=== PATIENT | male | born 1995 | race African-American/Black ===

== ENCOUNTER 2019-03-21 08:50 | Day surgery (SDC) | payer MEDICAID ==
[2019-03-21 09:42] LABS: GLUCOSE, URINE (UA) NEGATIVE (NEGATIVE); KETONES,URINE (UA) 40 mg/dL (NEGATIVE); LEUKOCYTE ESTERASE, URINE NEGATIVE (NEGATIVE); NITRITE,URINE NEGATIVE (NEGATIVE); OCCULT BLOOD,URINE SMALL (NEGATIVE); PROTEIN,URINE TRACE mg/dL (NEGATIVE); UROBILINOGEN,URINE 0.2 (NORMAL) E.U./dL (NORMAL)
[2019-03-21 09:43] LABS: CLARITY,URINE CLEAR (CLEAR)
[2019-03-21] MEDS ORDERED: ONDANSETRON 4 MG/2 ML VIAL IVP STA (09:46)
[2019-03-21 09:47] LABS: BILIRUBIN,URINE NEGATIVE (NEGATIVE); ICTOTEST,URINE NEGATIVE
[2019-03-21 09:53] LABS: BASOPHILS % (AUTO) 0.4 %; EOSINOPHILS # (AUTO) 0.1 10^3/uL (0.0-0.7); EOSINOPHILS % (AUTO) 0.9 %; HGB - HEMOGLOBIN 13.8 g/dL (14.0-18.0); LYMPHOCYTES # (AUTO) 2.1 10^3/uL (1.5-3.5); LYMPHOCYTES % (AUTO) 20.5 %; MEAN CORPUSCULAR HEMOGLOBIN 26.8 pg (27.0-31.0); MEAN CORPUSCULAR HGB CONC 30.5 g/dL (32.0-36.0); MEAN CORPUSCULAR VOLUME 87.9 fL (80.0-94.0); MEAN PLATELET VOLUME 11.2 fL (7.4-11.4); MONOCYTES # (AUTO) 0.7 10^3/uL (0.0-1.0); MONOCYTES % (AUTO) 6.6 %; NEUTROPHILS # (AUTO) 7.1 10^3/uL (1.5-6.6); NEUTROPHILS % (AUTO) 71.2 %; PLT - PLATELET COUNT 198 10^3/uL (130-450); RED BLOOD COUNT 5.14 10^6/uL (4.70-6.10)
[2019-03-21 10:01] LABS: BACTERIA,URINE Rare /HPF (None Seen); MUCUS,URINE Few Strands; RBC,URINE 0-5 /HPF (0-5); SQUAMOUS EPITHELIAL CELL,UR NONE SEEN (<= Few)
[2019-03-21] MEDS ORDERED: MORPHINE 2 MG/ML CARPUJECT IVP STA (10:01)
--- NOTE | 2019-03-21 10:04 | ED Physician Documentation ---
History of Present Illness - Stated complaint Stated Complaint: R SIDE ABD PX - Chief complaint Chief Complaint: Abd Pain - Treatment prior to arrival Treatment prior to arrival: This is a otherwise healthy 23-year-old male presents with right lower quadrant pain for the last 2 to 3 days. He began having some aching in his right lower quadrant, this is been associated with poor appetite, one episode of vomiting, and continued nausea. He denies any dysuria or hematuria. No testicular pain. He has never had any surgeries on his abdomen. No fever. Pain currently 09/22. Review of Systems Constitutional: denies: Fever Nose: denies: Rhinorrhea / runny nose Throat: denies: Dental pain / toothache Cardiac: denies: Chest pain / pressure GI: reports: Abdominal Pain, Nausea : denies: Dysuria Skin: denies: Rash PD PAST MEDICAL HISTORY - Past Medical History GI: None - Past Surgical History Past Surgical History: No - Present Medications Home Medications: Ambulatory Orders Medication Instructions Recorded Confirmed Ciprofloxacin 500 mg PO BID #5 tab 03/21/19 Promethazine [Phenergan] 25 - 50 mg PO Q6H PRN #10 tab 03/21/19 oxyCODONE/ACET 5/325 [Percocet 5 1 each PO Q4-6H PRN #14 tablet 03/21/19 mg/325 mg] - Allergies Allergies/Adverse Reactions: Allergies Allergy/AdvReac Type Severity Reaction Status Date / Time No Known Drug Allergies Allergy Verified 03/21/19 09:11 - Living Situation Living Arrangement: reports: At home PD ED PE NORMAL - Vitals Vital signs reviewed: Yes - General General: Alert and oriented X 3 - Cardiac Cardiac: RRR - Respiratory Respiratory: No respiratory distress - Abdomen Abdomen: Other (Focal right lower quadrant tenderness. No guarding. No upper quadrant tenderness.) - Extremities Extremities: No deformity - Neuro Neuro: Alert and oriented X 3 Results - Vitals Vitals: Vital Signs - 24 hr 03/21/19 03/21/19 03/21/19 09:09 10:16 11:22 Temperature 36.9 C 37.2 C 37.2 C Heart Rate 82 71 88 Respiratory 14 17 12 Rate Blood Pressure 146/65 H 157/77 H 132/77 H O2 Saturation 98 99 100 03/21/19 03/21/19 03/21/19 12:48 12:55 13:00 Temperature 36.9 C 37.0 C Heart Rate 65 59 L 60 Respiratory 16 12 15 Rate Blood Pressure 160/79 H 141/81 H 141/72 H O2 Saturation 100 99 100 03/21/19 03/21/19 03/21/19 13:05 13:10 13:15 Temperature 36.8 C Heart Rate 61 57 L 60 Respiratory 17 18 19 Rate Blood Pressure 139/89 H 142/74 H 142/76 H O2 Saturation 100 100 98 03/21/19 03/21/19 03/21/19 13:20 13:25 13:32 Temperature 37.0 C 37.4 C Heart Rate 69 64 63 Respiratory 20 17 14 Rate Blood Pressure 153/80 H 143/82 H 136/78 H O2 Saturation 98 98 99 03/21/19 03/21/19 03/21/19 13:37 13:43 13:47 Temperature 37.4 C 37.4 C 37.4 C Heart Rate 74 60 58 L Respiratory 14 14 14 Rate Blood Pressure 135/70 H 137/73 H 126/77 O2 Saturation 96 97 97 03/21/19 03/21/19 03/21/19 14:02 14:17 14:32 Temperature 37.3 C 37.2 C 37.2 C Heart Rate 58 L 62 73 Respiratory 14 14 14 Rate Blood Pressure 137/78 H 127/76 130/79 O2 Saturation 97 98 100 03/21/19 14:47 Temperature 37.3 C Heart Rate 65 Respiratory 14 Rate Blood Pressure 130/79 O2 Saturation 100 Oxygen O2 Source Room air - Labs Labs: Laboratory Tests 03/21/19 03/21/19 03/21/19 09:11 09:21 09:32 WBC 10.0 RBC 5.14 Hgb 13.8 L Hct 45.2 MCV 87.9 MCH 26.8 L MCHC 30.5 L RDW 13.0 Plt Count 198 MPV 11.2 Neut # (Auto) 7.1 H Lymph # (Auto) 2.1 [place] # (Auto) 0.7 Eos # (Auto) 0.1 Baso # (Auto) 0.0 Absolute Nucleated RBC 0.00 Nucleated RBC % 0.0 Sodium 138 Potassium 3.6 Chloride 101 Carbon Dioxide 27 Anion Gap 10.0 BUN 9 Creatinine 0.9 Estimated GFR (MDRD) 127 Glucose 103 H Calcium 9.4 Total Bilirubin 1.4 H AST 19 ALT 24 Alkaline Phosphatase 74 Total Protein 8.2 Albumin 4.5 Globulin 3.7 Albumin/Globulin Ratio 1.2 Lipase 20 L Urine Color DARK YELLOW Urine Clarity CLEAR Urine pH 6.0 Ur Specific [place] >=1.030 H Urine Protein TRACE Urine Glucose (UA) NEGATIVE Urine Ketones 40 H Urine Occult Blood SMALL H Urine Nitrite NEGATIVE Urine Bilirubin NEGATIVE Urine Urobilinogen 0.2 (NORMAL) Ur Leukocyte Esterase NEGATIVE Urine RBC 0-5 Urine WBC 0-3 Ur Squamous Epith Cells NONE SEEN Urine Bacteria Rare Urine Mucus Few Strands Ur Microscopic Review INDICATED Urine Culture Comments NOT INDICATED - Rads (name of study) CT Abd/pelvis Radiology: Other (Acute uncomplicated appy) PD MEDICAL DECISION MAKING - ED course Complexity details: considered differential (Appendicitis, UTI, enteritis, abscess) ED course: Pt presents with symptoms most concerning for appendicitis, he was given zofran and morphine and a fluid bolus. CT does indeed show acute uncomplicated appendicitis. He was given Zosyn, I explained the diagnosis and the plan for surgery, and Dr. Mcclain took him to the OR for appendectomy. He was non-toxic and hemodynamically stable. Departure - Departure Disposition: ED Transfer to [facility] Clinical Impression: Appendicitis Qualifiers: Appendicitis type: acute appendicitis Acute appendicitis type: with localized peritonitis Appendicitis gangrene presence: without gangrene Appendicitis perforation presence: without perforation Appendicitis abscess presence: without abscess Qualified Code(s): K35.30 - Acute appendicitis with localized peritonitis, without perforation or gangrene Condition: Good Discharge Date/Time: 03/21/19 11:59
[2019-03-21 10:12] LABS: ALBUMIN 4.5 g/dL (3.2-5.5); ALBUMIN/GLOBULIN RATIO 1.2 (1.0-2.2); BILIRUBIN,TOTAL 1.4 mg/dL (0.2-1.0); CALCIUM 9.4 mg/dL (8.5-10.3); CREATININE 0.9 mg/dL (0.6-1.2); TOTAL PROTEIN 8.2 g/dL (6.7-8.2)
[2019-03-21] MEDS ORDERED: IOVERSOL 320 100 ML VIAL IVP ONE ×2 (10:19→11:34)
[2019-03-21] MEDS ORDERED: PIPERACILLIN/TAZOBACTAM 3.375 GM in SODIUM CHLORIDE 0.9% MINIBAG 100 ML IV STA (10:57)
--- NOTE | 2019-03-21 10:57 | CT Report ---
Reason: RLQ pain, nausea/vomiting Procedure Date: 03/21/2019 Accession Number: [id number] / [id number] Procedure: CT - Abdomen/Pelvis W CPT Code: Final Report FULL RESULT: EXAM: CT ABDOMEN AND PELVIS EXAM DATE: 03/21/2019 10:27 AM. CLINICAL HISTORY: Right lower quadrant pain, nausea/vomiting. COMPARISONS: None. TECHNIQUE: Routine helical CT imaging was performed through the abdomen and pelvis. IV contrast: OPTI 320 100ML. Enteric contrast: No. Reconstructions: Coronal and sagittal. In accordance with CT protocol optimization, one or more of the following dose reduction techniques were utilized for this exam: automated exposure control, adjustment of mA and/or KV based on patient size, or use of iterative reconstructive technique. FINDINGS: Lung Bases: Unremarkable. Liver: Normal. No masses. Gallbladder/Bile Ducts: Unremarkable. Spleen: Normal. Pancreas: Normal. Adrenal Glands: Normal. Kidneys: Normal. No masses or hydronephrosis. Peritoneal Cavity/Bowel: There are focal inflammatory changes surrounding the appendix, which measures up to 1.1 cm in caliber and demonstrates an appendicolith near the base. No bowel obstruction, overt free fluid or fluid collection. A prominent lobular nodularity in the infrarenal precaval region as seen on image 44 series 3 and image 26 series 5 is felt to represent atypical morphology of reactive physiologic lymph nodes given nearby pathology and expected appearance of other nearby lymph nodes, see coronal image 25 series 5. Pelvic Organs: Visualized bladder and remaining organs within the pelvis are within normal limits, for appendicitis see above. Vasculature: No aneurysms or other significant abnormality. Bones: No significant abnormality. Other: None. IMPRESSION: Acute uncomplicated appendicitis. [facility] The call report notification system was initiated by Dr. Aston Rene at 10:53 AM on 03/21/2019. The above call report findings were discussed with Erick Jennings by Dr. Aston Rene at 10:56 AM on 03/21/2019.
--- NOTE | 2019-03-21 11:14 | ANESTHESIA ---
Pre-Anesthesia VS, & Labs - Diagnosis Acute appendicitis - Procedure Lap. Appy Vital Signs: Temp Pulse Resp BP Pulse Ox 37.2 C 71 17 157/77 H 99 03/21/19 10:16 03/21/19 10:16 03/21/19 10:16 03/21/19 10:16 03/21/19 10:16 Height 5 ft 9 in Weight (kg) 122.47 kg Body Mass Index 39.9 - NPO >8 hours - Lab Results Current Lab Results: Laboratory Tests 03/21/19 09:32: Sodium 138, Potassium 3.6, Chloride 101, Carbon Dioxide 27, Anion Gap 10.0, BUN 9, Creatinine 0.9, Estimated GFR (MDRD) 127, Glucose 103 H, Calcium 9.4, Total Bilirubin 1.4 H, AST 19, ALT 24, Alkaline Phosphatase 74, Total Protein 8.2, Albumin 4.5, Globulin 3.7, Albumin/Globulin Ratio 1.2, Lipase 20 L 03/21/19 09:11: WBC 10.0, RBC 5.14, Hgb 13.8 L, Hct 45.2, MCV 87.9, MCH 26.8 L, MCHC 30.5 L, RDW 13.0, Plt Count 198, MPV 11.2, Neut # (Auto) 7.1 H, Lymph # (Auto) 2.1, [place] # (Auto) 0.7, Eos # (Auto) 0.1, Baso # (Auto) 0.0, Absolute Nucleated RBC 0.00, Nucleated RBC % 0.0 Lab results reviewed: Yes Fish Bones: 03/21/19 09:11 03/21/19 09:32 Home Medications and Allergies Active Medications Piperacillin Sod/Tazobactam (Sod 3.375 gm/ Sodium Chloride) 100 mls @ 200 mls/hr IV ONCE STA Stop: 03/21/19 11:26 Allergies/Adverse Reactions: Allergies Allergy/AdvReac Type Severity Reaction Status Date / Time No Known Drug Allergies Allergy Verified 03/21/19 09:11 Anes History & Medical History - Anesthetic History Family history of Anesthesia Complications: Denies Family history of Malignant Hyperthermia: Denies - Medical History Cardiovascular: reports: None Pulmonary: reports: None Gastrointestinal: reports: None Urinary: reports: None Neuro: reports: None Musculoskeletal: reports: None Endocrine/Autoimmune: reports: None Blood Disorders: reports: None Skin: reports: None Smoking Status: Current every day smoker (Vapes daily.) Psychosocial: reports: No issues indicated Exam General: Alert, Oriented x3, Cooperative, No acute distress Dental: WNL Mouth Openin Fingerbreadth Neck Mobility: Normal Mallampati classification: II Thyromental Distance: greater than 6 cm Respiratory: Lungs clear, Normal breath sounds, No respiratory distress, No accessory muscle use Cardiovascular: Regular rate, Normal S1, Normal S2, No murmurs Mental/Cognitive Status: Alert/Oriented X3, Normal for patient Plan Anesthesia Type: General Consent for Procedure(s) Verified and Reviewed: Yes Code Status: Attempt Resuscitation ASA classification: 2-Mild systemic disease Is this case an emergency?: Yes
[2019-03-21] MEDS ORDERED: MIDAZOLAM 2 MG/2 ML VIAL IVP ONE (11:29)
[2019-03-21] MEDS ORDERED: PROPOFOL 200 MG/20 ML VIAL IVP ONE (11:29)
[2019-03-21] MEDS ORDERED: NEOSTIGMINE 1 MG/1 ML 10 ML MDV IVP ONE (11:29)
[2019-03-21] MEDS ORDERED: KETOROLAC 30 MG/ML VIAL IVP ONE (11:29)
[2019-03-21] MEDS ORDERED: HYDROmorphone 1 MG/ML SYRINGE IM ONE (11:29)
[2019-03-21] MEDS ORDERED: fentaNYL 100 MCG/2 ML VIAL IVP ONE (11:29)
[2019-03-21] MEDS ORDERED: ROCURONIUM 50 MG/5 ML VIAL IVP ONE (11:29)
[2019-03-21] MEDS ORDERED: GLYCOPYRROLATE 1 MG/5 ML VIAL IVP ONE (11:29)
[2019-03-21] MEDS ORDERED: LACTATED RINGERS 1,000 ML IV ONE ×2 (11:36→12:48)
--- NOTE | 2019-03-21 11:41 | HISTORY & PHYSICAL EXAMINATION ---
HPI - Admitted From Admitted from: ED - History Obtained From Records Reviewed: RN notes reviewed History obtained from: Patient Exam limitations: No limitations - History of Present Illness Severity at the worst: reports: Severe Pain Quality: reports: Dull, Aching, Cramping, Throbbing Context-Pain started w/: reports: Rest Timing: reports: Gradual onset Duration: reports: Unknown (3) Improved with: reports: Nothing Worsened by: reports: Exertion, Inspiration, Eating, Movement, Palpation Associated symptoms: reports: Nausea, General Weakness HPI Comment/Other: This is a otherwise healthy 23-year-old male presents with right lower quadrant pain for the last 2 to 3 days. He began having some aching in his right lower quadrant, this is been associated with poor appetite, one episode of vomiting, and continued nausea. He denies any dysuria or hematuria. No testicular pain. He has never had any surgeries on his abdomen. No fever. PMH/PSH - Past Medical History Cardiovascular: positive: None Respiratory: positive: None Neuro: positive: None Endocrine/Autoimmune: positive: None GI: positive: None : positive: None Musculoskeletal: positive: None Derm: positive: None Social & Family Hx - Social History Does the pt smoke?: Yes Smoking Status: Current every day smoker (Vapes daily.) Does the pt drink ETOH?: No Does the pt have substance abuse?: No Meds/Allgy - Allergies Allergies/Adverse Reactions: Allergies Allergy/AdvReac Type Severity Reaction Status Date / Time No Known Drug Allergies Allergy Verified 03/21/19 09:11 Review of Systems - Constitutional Constitutional: reports: Fatigue, Malaise, Poor appetite. denies: Fever, Chills - Eyes Eyes: denies: Irritation, Blurred vision - Ears, Nose & Throat Ears, Nose & Throat: denies: Tinnitus, Vertigo - Cardiovascular Cariovascular: denies: Irregular heart rate, Palpitations, Chest pain, Lightheadedness - Respiratory Respiratory: denies: Cough, Wheezing - Gastrointestinal Gastrointestinal: reports: Abdominal pain, Nausea. denies: Abdominal distention, Constipation, Diarrhea, Vomiting - Genitourinary Genitourinary: denies: Dysuria, Frequency, Urgency - Musculoskeletal Musculoskeletal: denies: Muscle pain, Back pain - Integumentary Integumentary: denies: Rash, Pruritis, Lesions - Neurological Neurological: denies: General weakness, Focal weakness - Psychiatric Psychiatric: denies: Depression, Anxiety - Endocrine Endocrine: denies: Polyuria, Polydypsia - Hematologic/Lymphatic Hematologic/Lymphatic: denies: Anemia, Bruising, Blood clots - All Other Systems All Other Systems: reports: Reviewed and negative Exam - Vital Signs Reviewed Vital Signs: Yes Vital Signs: Vital Signs x48h Temp Pulse Resp BP Pulse Ox 03/21/19 11:22 37.2 C 88 12 132/77 H 100 03/21/19 10:16 37.2 C 71 17 157/77 H 99 03/21/19 09:09 36.9 C 82 14 146/65 H 98 - Physical Exam General Appearance: positive: No acute distress Eyes Bilateral: positive: Normal inspection, PERRL, EOMI ENT: positive: ENT inspection nml, Pharynx nml, No signs of dehydration Neck: positive: Nml inspection, Thyroid nml, No JVD, Trachea midline Respiratory: positive: Chest non-tender, No respiratory distress, Breath sounds nml. negative: Wheezes Cardiovascular: positive: Regular rate & rhythm, No murmur, No gallop Peripheral Pulses: positive: 1+ Abdomen: positive: No organomegaly, Tenderness, Rebound Back: positive: Nml inspection. negative: CVA tenderness (R), CVA tenderness (L) Skin: positive: Color nml, No rash, Warm Extremities: positive: Non-tender, Full ROM, Nml appearance Neurologic/Psychiatric: positive: Oriented x3, CN's nml (2-12) Results - Lab Results Lab results reviewed: Yes Fish Bones: 03/21/19 09:11 03/21/19 09:32 Other Lab Results: Lab Results x24hrs 03/21/19 03/21/19 03/21/19 Range/Units 09:32 09:21 09:11 WBC 10.0 (4.8-10.8) x10^3/uL RBC 5.14 (4.70-6.10) 10^6/uL Hgb 13.8 L (14.0-18.0) g/dL Hct 45.2 (42.0-52.0) % MCV 87.9 (80.0-94.0) fL MCH 26.8 L (27.0-31.0) pg MCHC 30.5 L (32.0-36.0) g/dL RDW 13.0 (12.0-15.0) % Plt Count 198 (130-450) 10^3/uL MPV 11.2 (7.4-11.4) fL Neut # (Auto) 7.1 H (1.5-6.6) 10^3/uL Lymph # (Auto) 2.1 (1.5-3.5) 10^3/uL [place] # (Auto) 0.7 (0.0-1.0) 10^3/uL Eos # (Auto) 0.1 (0.0-0.7) 10^3/uL Baso # (Auto) 0.0 (0.0-0.1) 10^3/uL Absolute Nucleated RBC 0.00 x10^3/uL Nucleated RBC % 0.0 /100WBC Sodium 138 (135-145) mmol/L Potassium 3.6 (3.5-5.0) mmol/L Chloride 101 (101-111) mmol/L Carbon Dioxide 27 (21-32) mmol/L Anion Gap 10.0 (6-13) BUN 9 (6-20) mg/dL Creatinine 0.9 (0.6-1.2) mg/dL Estimated GFR (MDRD) 127 (>89) Glucose 103 H (70-100) mg/dL Calcium 9.4 (8.5-10.3) mg/dL Total Bilirubin 1.4 H (0.2-1.0) mg/dL AST 19 (10-42) IU/L ALT 24 (10-60) IU/L Alkaline Phosphatase 74 (42-121) IU/L Total Protein 8.2 (6.7-8.2) g/dL Albumin 4.5 (3.2-5.5) g/dL Globulin 3.7 (2.1-4.2) g/dL Albumin/Globulin Ratio 1.2 (1.0-2.2) Lipase 20 L (22-51) U/L Urine Color DARK YELLOW Urine Clarity CLEAR (CLEAR) Urine pH 6.0 (5.0-7.5) PH Ur Specific [place] >=1.030 H (1.002-1.030) Urine Protein TRACE (NEGATIVE) mg/dL Urine Glucose (UA) NEGATIVE (NEGATIVE) mg/dL Urine Ketones 40 H (NEGATIVE) mg/dL Urine Occult Blood SMALL H (NEGATIVE) Urine Nitrite NEGATIVE (NEGATIVE) Urine Bilirubin NEGATIVE (NEGATIVE) Urine Urobilinogen 0.2 (NORMAL) (NORMAL) E.U./dL Ur Leukocyte Esterase NEGATIVE (NEGATIVE) Urine RBC 0-5 (0-5) /HPF Urine WBC 0-3 (0-3) /HPF Ur Squamous Epith Cells NONE SEEN (<= Few) Urine Bacteria Rare (None Seen) /HPF Urine Mucus Few Strands Ur Microscopic Review INDICATED Urine Culture Comments NOT INDICATED - Diagnostic Imaging Results Diagnostic Imaging Results: positive: Final report reviewed Diagnostic Imaging Results Comments: CT comsistent with acute appendicitis Impression/Plan - Problem List Problem List: Acute appendicitis in the setting of a healthy but overweight 23 year old man with no prior surgical history. We have discussed the risks and benefits of the procedure and the patient has expressed a desire to complete the procedure to day.
[2019-03-21] MEDS ORDERED: ceFAZolin 1 GM VIAL ONE (11:53)
[2019-03-21] MEDS ORDERED: BUPIVACAINE 0.5%-EPI 1:200000 PF 30 ML VIAL ONE (11:53)
[2019-03-21] MEDS ORDERED: LIDOCAINE-MPF 1% 30 ML VIAL ONE (11:54)
[2019-03-21] MEDS ORDERED: LIDOCAINE 1%-EPI 1:100000 30 ML MDV SUBQ ONE ×2 (12:12)
[2019-03-21] MEDS ORDERED: BUPIVACAINE 0.5% PF 30 ML VIAL SUBQ ONE ×2 (12:12)
[2019-03-21] MEDS ORDERED: ACETAMINOPHEN 325 MG TABLET PO PRN (12:44)
[2019-03-21] MEDS ORDERED: oxyCODONE 5 MG TABLET PO PRN (12:44)
[2019-03-21] MEDS ORDERED: IBUPROFEN 600 MG TABLET PO PRN (12:44)
[2019-03-21] MEDS ORDERED: ONDANSETRON 4 MG/2 ML VIAL IVP PRN (12:44)
--- NOTE | 2019-03-21 12:44 | OPERATIVE REPORT ---
Operative Report - General Procedure Date: 03/21/19 Planned Procedure: Laparoscopic Appendectomy Pre-Op Diagnosis: Acute appendicitis Procedure Performed: Laparoscopic Appendectomy Post Op Diagnosis: Acute appendicitis - Procedure Note Primary Surgeon: Sarahi Anesthesia Provider: BRIAN Orellana Anesthesia Technique: General ET tube, Local Pathology: Appendix in formalin to pathology Estimated Blood Loss (mL): 20 Findings: Acute, suppurative appendicites without obvious rupture Complications: None apparent - Other Other Information/Narrative: After obtaining informed consent, the patient is brought to the operating room and placed in the supine position on the operative. Following successful induction of general endotracheal anesthesia, appropriate padding of all bony prominences, and placement of appropriate monitors, the abdomen was prepped and draped in the standard surgical fashion. A timeout was held per scope protocol. All elements of the surgical safety checklist were followed before, during, and after the procedure. We began the procedure by infiltrating a mixture of local anesthetics superior to the umbilicus and the site we have chosen for the largest port. An incision was created here and carried down through the skin and subcutaneous tissue to reveal the fascia below. The patient had a significant amount of extra- abdominal adipose tissue. Once the fascia had been clearly identified, 2 retention sutures were placed on either side and a once a meter incision was created allowing access into the abdominal cavity. A 10 mm blunt More balloon trocar was placed in the abdominal cavity and it was insufflated to 15 mmHg pressure. The patient was placed in Trendelenburg position with left side rotated toward the floor. A second trocar, 5 mm, was placed midway between the umbilicus and the pubis after infiltration with local anesthetic. A third trocar was placed in the right upper quadrant also under direct vision and after infiltration with local anesthetic.The appendix was visualized in the right lower quadrant adherent to the right lateral and anterior abdominal wall. Care was taken to mobilize the appendix from these structures. The veil of Jenny and omentum were wrapped around the appendix as well.The structures were liberated leaving only the appendix and its mesentery with the attachment to the cecum easily visualized. A window was created in the mesentery at its attachment to the cecum and a SARA stapling device was used to ligate and divide the appendix at this attachment. A second load was used to ligate the neurov ascular pedicle, the mesoappendix. The appendix was then placed in a endoscopic bag device and removed via the umbilical port. The abdomen was then irrigated with 500 mL of warm saline solution and aspirated free of all fluid and particulate matter. The staple lines were all examined for bleeding as well as occlusion.We were satisfied with our repair, the trochars were all removed under direct vision and the abdomen desufflated. The upper midline incision was closed with interrupted PDS suture and oversewn with 0 Vicryl suture. Monocryl stitches were placed in all of the skin incisions. Dermabond was applied externally. All sponge, needle, and instrument counts were correct at the conclusion of the case. The patient was allowed awaken from anesthesia without difficulty and taken to the postanesthesia care unit in good condition.
[2019-03-21] MEDS ORDERED: SUGAMMADEX 200 MG/2 ML VIAL IVP ONE (12:58)
[2019-03-21] MEDS ORDERED: oxyCODONE 5 MG TABLET ONE (13:55)
[2019-03-21 14:36] VITALS: BP 130/79
== END 2019-03-21 11:29 | disposition home or self-care (01) ==
LOC: ED 08:50 → SDS 11:28
PROVIDERS: ATTEND Surgery
PROC: 0DTJ4ZZ Resection of Appendix, Percutaneous Endoscopic Approach (ICD-10-PCS; principal; 2019-03-21 11:15)
DX: K35.80 Unspecified acute appendicitis (principal); F17.290 Nicotine dependence, other tobacco product, uncomplicated; E66.3 Overweight; Z68.39 Body mass index [BMI] 39.0-39.9, adult
CPT/HCPCS: 36415; 44970; 74177; 80053; 81001; 83690; 85025; 96374; 96375; 99283; 99285; A9270; J1170; J7120; Q9967; 81003; 87086